=== PATIENT | male | born 1985 | race Caucasian/White ===

== ENCOUNTER 2021-08-14 16:30 | Emergency (ER) | payer SELFPAY ==
[~2021-08-14] VITALS: Ht 187.9 cm; Wt 124.7 kg
[2021-08-14] MEDS ORDERED: KETAMINE 50 MG/5 ML SYRINGE IV ONE (16:33)
[2021-08-14] MEDS ORDERED: ROCURONIUM 10 MG/ML 5 ML SYRINGE IV ONE (16:35)
[2021-08-14] MEDS ORDERED: TRANEXAMIC ACID INJECTION 1,000 MG in NS (IVPB) 50 ML IV ONE (16:45)
[2021-08-14] MEDS ORDERED: TRANEXAMIC ACID 100 MG/ML 10 ML INJECTION ONE ×3 (16:47→17:06)
[2021-08-14] MEDS ORDERED: NS (IVPB) 50 ML ONE (16:49)
[2021-08-14] MEDS ORDERED: LACTATED RINGERS 1,000 ML IV SCH (17:00)
[2021-08-14] MEDS ORDERED: NS IV 1000 ML 1,000 ML IV SCH ×2 (17:00)
[2021-08-14] MEDS ORDERED: TRANEXAMIC ACID INJECTION 1,000 MG in NS (IVPB) 250 ML IV SCH ×2 (17:00→17:15)
[2021-08-14] MEDS ORDERED: NS (IVPB) 100 ML ONE (17:02)
[2021-08-14] MEDS ORDERED: NS (IVPB) 250 ML ONE (17:06)
[2021-08-14 17:17] LABS: BASOPHILS % (AUTO) 0 % (0-10); EOSINOPHILS # (AUTO) 0.1 10^3/uL (0.0-0.3); EOSINOPHILS % (AUTO) 0 % (0-10); HEMATOCRIT 44 % (40-54); HEMOGLOBIN 13.8 g/dL (13.3-17.7); LYMPHOCYTES # (AUTO) 5.8 10^3/uL (1.0-4.0); LYMPHOCYTES % (AUTO) 26 % (12-44); MEAN CORPUSCULAR HEMOGLOBIN 29 pg (25-34); MEAN CORPUSCULAR HGB CONC 31 g/dL (32-36); MEAN CORPUSCULAR VOLUME 93 fL (80-99); MEAN PLATELET VOLUME 9.6 fL (9.0-12.2); MONOCYTES # (AUTO) 0.8 10^3/uL (0.0-1.0); MONOCYTES % (AUTO) 4 % (0-12); NEUTROPHILS # (AUTO) 15.2 10^3/uL (1.8-7.8); NEUTROPHILS % (AUTO) 68 % (42-75); PLATELET COUNT 497 10^3/uL (130-400); WHITE BLOOD COUNT 22.5 10^3/uL (4.3-11.0)
[2021-08-14 17:21] LABS: BILIRUBIN,URINE NEGATIVE (NEGATIVE); CLARITY,URINE CLEAR; COLOR,URINE YELLOW; GLUCOSE, URINE (UA) NEGATIVE (NEGATIVE); KETONES,URINE NEGATIVE (NEGATIVE); LEUKOCYTE ESTERASE ,URINE NEGATIVE (NEGATIVE); NITRITE,URINE NEGATIVE (NEGATIVE); PH,URINE 6.5 (5-9); PROTEIN,URINE 2+ (NEGATIVE)
[2021-08-14 17:25] VITALS: BP 122/92
[2021-08-14 17:34] LABS: INR 1.3 (0.8-1.4); PROTHROMBIN TIME PATIENT 16.4 SEC (12.2-14.7)
[2021-08-14 17:36] LABS: CHLORIDE 104 MMOL/L (98-107); POTASSIUM 3.1 MMOL/L (3.6-5.0); SODIUM 141 MMOL/L (135-145)
[2021-08-14 17:37] LABS: AMPHETAMINE SCREEN, URINE NEGATIVE (NEGATIVE); BARBITURATE SCREEN URINE NEGATIVE (NEGATIVE); BENZODIAZEPINES SCREEN URINE NEGATIVE (NEGATIVE); CANNABINOID SCREEN, URINE NEGATIVE (NEGATIVE); COCAINE SCREEN URINE NEGATIVE (NEGATIVE); METHADONE STAT NEGATIVE (NEGATIVE); METHAMPHETAMINE SCREEN URINE S NEGATIVE (NEGATIVE); OPIATE SCREEN URINE NEGATIVE (NEGATIVE); OXYCODONE STAT NEGATIVE (NEGATIVE); PROPOXYPHENE STAT NEGATIVE (NEGATIVE); TRICYCLIC ANTIDEPRESSANTS SCRE NEGATIVE (NEGATIVE)
[2021-08-14 17:38] LABS: BACTERIA,URINE NEGATIVE /HPF; CALCIUM 8.4 MG/DL (8.5-10.1); RBC,URINE 50-100 /HPF; SQUAMOUS EPITHELIAL CELL,UR 0-2 /HPF; TRIGLYCERIDES 213 MG/DL (<150); VLDL CHOLESTEROL 43 MG/DL (5-40)
[2021-08-14 17:39] LABS: TOTAL PROTEIN 6.4 GM/DL (6.4-8.2)
[2021-08-14 17:40] LABS: CARBON DIOXIDE 12 MMOL/L (21-32); GLUCOSE 304 MG/DL (70-105)
[2021-08-14 17:41] LABS: BILIRUBIN,TOTAL 0.3 MG/DL (0.1-1.0)
[2021-08-14 17:43] LABS: ALKALINE PHOSPHATASE 86 U/L (40-136); CREATININE SERUM 1.52 MG/DL (0.60-1.30); GFR ESTIMATED 61
[2021-08-14 17:44] LABS: BILIRUBIN,DIRECT 0.1 MG/DL (0.0-0.3); BILIRUBIN,INDIRECT 0.2 MG/DL; BUN/CREATININE RATIO 9; CHOLESTEROL 177 MG/DL (< 200)
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
[2021-08-14 17:45] LABS: HDL CHOLESTEROL 28 MG/DL (40-60)
[2021-08-14 17:46] LABS: ALANINE AMINOTRANSFERASE 162 U/L (0-55); MAGNESIUM 2.8 MG/DL (1.6-2.4)
[2021-08-14 17:47] LABS: CREATINE KINASE 744 U/L (30-200)
[2021-08-14 17:53] LABS: NEUTROPHILS % (MANUAL) 60 %
[2021-08-14 17:54] LABS: BAND NEUTROPHILS 5 %; BASOPHILS % (MANUAL) 0 %; EOSINOPHILS % (MANUAL) 0 %; LYMPHOCYTES % (MANUAL) 28 %; MONOCYTES % (MANUAL) 7 %; RBC MORPH NORMAL
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
== END 2021-08-14 17:25 | disposition short-term general hospital (02) ==
LOC: EDUNIT# 16:32 → ER 16:34
DX: Z04.1 Encounter for examination and observation following transport accident (principal)
CPT/HCPCS: 31500; 36430; 51702; 71045; 72170; 80053; 80061; 80306; 81000; 82248; 82550; 83605; 83735; 83874; 84100; 84484; 85007; 85027; 85384; 85610; 85730; 86850; 86900; 86901; 86920; 99291; G0390; G0480; P9016; 36415; 80076; 80320

== ENCOUNTER 2022-07-14 23:06 | Emergency (ER) | payer OTHER ==
[~2022-07-14] VITALS: Ht 187.9 cm; Wt 113.3 kg
[2022-07-14 23:41] LABS: BASOPHILS % (AUTO) 0 % (0-10); EOSINOPHILS # (AUTO) 0.1 10^3/uL (0.0-0.3); EOSINOPHILS % (AUTO) 1 % (0-10); HEMATOCRIT 41 % (40-54); HEMOGLOBIN 14.4 g/dL (13.3-17.7); LYMPHOCYTES # (AUTO) 2.1 10^3/uL (1.0-4.0); LYMPHOCYTES % (AUTO) 21 % (12-44); MEAN CORPUSCULAR HEMOGLOBIN 29 pg (25-34); MEAN CORPUSCULAR HGB CONC 35 g/dL (32-36); MEAN CORPUSCULAR VOLUME 81 fL (80-99); MONOCYTES # (AUTO) 0.8 10^3/uL (0.0-1.0); MONOCYTES % (AUTO) 8 % (0-12); NEUTROPHILS # (AUTO) 6.8 10^3/uL (1.8-7.8); NEUTROPHILS % (AUTO) 69 % (42-75); PLATELET COUNT 414 10^3/uL (130-400); WHITE BLOOD COUNT 9.8 10^3/uL (4.3-11.0)
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
[2022-07-15 00:04] LABS: ACETAMINOPHEN < 10 UG/ML (10-30); ALANINE AMINOTRANSFERASE 25 U/L (0-55); ALBUMIN 4.4 GM/DL (3.2-4.5); ALKALINE PHOSPHATASE 128 U/L (40-136); BILIRUBIN,TOTAL 0.3 MG/DL (0.1-1.0); BUN/CREATININE RATIO 13; CALCIUM 9.5 MG/DL (8.5-10.1); CARBON DIOXIDE 22 MMOL/L (21-32); CHLORIDE 86 MMOL/L (98-107); CREATININE SERUM 0.76 MG/DL (0.60-1.30); GFR ESTIMATED 120; GLUCOSE 133 MG/DL (70-105); INR 1.8 (0.8-1.4); POTASSIUM 3.6 MMOL/L (3.6-5.0); PROTHROMBIN TIME PATIENT 21.7 SEC (12.2-14.7); SALICYLATE < 0.3 MG/DL (5.0-20.0); TOTAL PROTEIN 7.4 GM/DL (6.4-8.2)
[2022-07-15 00:05] LABS: SODIUM 124 MMOL/L (135-145)
[2022-07-15 00:10] LABS: BILIRUBIN,URINE NEGATIVE (NEGATIVE); CLARITY,URINE CLEAR; COLOR,URINE YELLOW; GLUCOSE, URINE (UA) NEGATIVE (NEGATIVE); KETONES,URINE NEGATIVE (NEGATIVE); LEUKOCYTE ESTERASE ,URINE 2+ (NEGATIVE); NITRITE,URINE POSITIVE (NEGATIVE); PH,URINE 6.5 (5-9); PROTEIN,URINE 1+ (NEGATIVE)
--- NOTE | 2022-07-15 00:11 | Diagnostic Imaging Report ---
INDICATION: Seizure. TECHNIQUE: Multiple contiguous axial images were obtained through the brain without the use of intravenous contrast. Auto Exposure Controls were utilized during the CT exam to meet ALARA standards for radiation dose reduction. COMPARISON: There is no prior CT for comparison. FINDINGS: There is no extra-axial fluid collection. No intracranial hemorrhage. No mass effect or midline shift. The ventricles are normal in size. There is a shunt catheter in place from a right frontal approach, passing through the right lateral ventricle with tip overlying the left side of the brainstem. There is chronic encephalomalacia change in the left temporal lobe and in left frontal lobe. Bony windows demonstrate diffuse opacification of the right mastoid air cells. There appears to be an old fracture of the right temporal lobe extending into the mastoid air cells. IMPRESSION: Chronic encephalomalacia in left temporal lobe and left frontal lobe. No acute hemorrhage. No ventricular dilatation with shunt catheter in place. Old right temporal fracture extending into the right mastoid air cells with partial opacification of right mastoid air cells. Dictated by: Dictated on workstation # [id number]
[2022-07-15 00:13] LABS: BACTERIA,URINE LARGE /HPF; RBC,URINE 0-2 /HPF; WBC,URINE 50-100 /HPF
[2022-07-15 00:19] LABS: AMPHETAMINE SCREEN, URINE NEGATIVE (NEGATIVE); BARBITURATE SCREEN URINE NEGATIVE (NEGATIVE); BENZODIAZEPINES SCREEN URINE NEGATIVE (NEGATIVE); CANNABINOID SCREEN, URINE NEGATIVE (NEGATIVE); COCAINE SCREEN URINE NEGATIVE (NEGATIVE); METHADONE STAT NEGATIVE (NEGATIVE); OPIATE SCREEN URINE NEGATIVE (NEGATIVE); OXYCODONE STAT NEGATIVE (NEGATIVE); PROPOXYPHENE STAT NEGATIVE (NEGATIVE); TRICYCLIC ANTIDEPRESSANTS SCRE NEGATIVE (NEGATIVE)
[2022-07-15] MEDS ORDERED: cefTRIAXone 1 GM PRE-MIX 50 ML IV STA (00:46)
[2022-07-15] MEDS ORDERED: NS IV 1000 ML 1,000 ML IV SCH (01:00)
[2022-07-15 01:11] VITALS: BP 127/67
== END 2022-07-15 01:18 | disposition short-term general hospital (02) ==
LOC: EDUNIT# 23:06 → ER FS 23:11
DX: E87.1 Hypo-osmolality and hyponatremia (principal); N30.00 Acute cystitis without hematuria; R25.9 Unspecified abnormal involuntary movements; Z28.310 Unvaccinated for COVID-19
CPT/HCPCS: 36415; 70450; 80053; 80306; 81000; 85025; 85610; 85730; 87088; 93041; 99283; G0480 ×3; 80320; 80329

== ENCOUNTER 2022-10-08 19:11 | Emergency (ER) | payer MEDICAID, OTHER ==
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
[2022-10-08 20:13] VITALS: BP 118/62
== END 2022-10-08 20:14 | disposition home or self-care (01) ==
LOC: EDUNIT# 19:11 → ER FS 19:12
DX: S09.90XA Unspecified injury of head, initial encounter (principal); S00.81XA Abrasion of other part of head, initial encounter; R56.9 Unspecified convulsions; Z79.01 Long term (current) use of anticoagulants; Z28.310 Unvaccinated for COVID-19; W22.8XXA Striking against or struck by other objects, initial encounter; W19.XXXA Unspecified fall, initial encounter
CPT/HCPCS: 70450